=== PATIENT | male | born 1980 | race Caucasian/White ===

== ENCOUNTER 2024-01-14 10:37 | Inpatient (IN) | payer OTHER ==
[~2024-01-14] VITALS: Ht 180.3 cm; Wt 66.4 kg
[~2024-01-14 10:37] MED LIST: ALBU90OI INH; AZIT250 PO; HYDGUAL120 PO; IBUP200; LORA1 PO; NICO14TP TOP; PROM25 PO; SULTRIDS PO
[2024-01-14 11:20] LABS: Source, Urine Clean Catch
[2024-01-14 11:24] LABS: Appearance, Urine Clear (Clear); Bilirubin, Urine Neg (Neg); Blood, Urine Neg (Neg); Color, Urine Yellow (P-Yellow); Glucose Qualitative, Urine Neg (Neg); Ketones, Urine 3+ (Neg); Leukocyte Esterase, Urine Neg (Neg); Nitrite, Urine Neg (Neg); Protein, Urine 1+ (Neg); Specific Gravity, Urine 1.025 (1.003-1.022); Urobilinogen, Urine NORM (Normal)
[2024-01-14 11:26] LABS: BASOPHILS ABSOLUTE AUTO 0.07 K/mm3 (0.00-0.23); BASOPHILS PERCENT AUTO 1 % (0-2); EOSINOPHILS ABSOLUTE AUTO 0.01 K/mm3 (0.00-0.68); EOSINOPHILS PERCENT AUTO 0 % (0-6); Hematocrit 46.9 % (37.0-53.0); Hemoglobin 15.8 g/dL (13.5-17.5); IMMATURE GRAN ABSOLUTE AUTO 0.12 K/mm3 (0.00-0.10); IMMATURE GRAN PERCENT AUTO 1 % (0-1); LYMPHOCYTES ABSOLUTE AUTO 1.27 K/mm3 (0.84-5.20); LYMPHOCYTES PERCENT AUTO 9 % (21-46); MONOCYTES ABSOLUTE AUTO 0.35 K/mm3 (0.16-1.47); MONOCYTES PERCENT AUTO 2 % (4-13); Mean Corpuscular HGB Conc 33.7 g/dL (31.5-36.5); Mean Corpuscular Volume 95 fL (80-100); Mean Platelet Volume 9.6 fL (9.1-12.4); NEUTROPHILS ABSOLUTE AUTO 12.53 K/mm3 (1.96-9.15); NEUTROPHILS PERCENT AUTO 87 % (41-73); Platelet Count 201 K/mm3 (150-400); RDW Coefficient Variation 12.9 % (11.7-14.2); RDW Standard Deviation 44.9 fL (35.1-46.3); Red Blood Cell Count 4.94 M/mm3 (4.30-5.90); White Blood Cell Count 14.35 K/mm3 (4.00-11.30)
[2024-01-14] MEDS ORDERED: Thiamine HCl 100 MG in NS 50 ML IV ONE (11:50)
[2024-01-14] MEDS ORDERED: Folic Acid 1 MG in NS 50 ML IV ONE (11:50)
[2024-01-14 12:19] LABS: Glucose, Blood 87 mg/dL (70-99)
[2024-01-14 12:29] LABS: Albumin, Blood 4.3 g/dL (3.4-5.0); Albumin/Globulin Ratio 1.2 (0.8-1.8); Bilirubin, Total 0.4 mg/dL (0.1-1.0); Bun/Creatinine Ratio 20.6 (12.0-20.0); Calcium, Blood 8.3 mg/dL (8.5-10.1); Creatinine, Blood 0.97 mg/dL (0.60-1.20); Globulin, Blood 3.7 g/dL (2.2-4.0); Phosphorus, Blood 4.1 mg/dL (2.5-4.9)
[2024-01-14 12:48] LABS: U Amphetamine Screen Not Detected; U Barbituate Screen Not Detected; U Benzodiazapine Screen Not Detected; U Buprenorphine Screen Not Detected; U Cannabinoids Screen Not Detected; U Cocaine Screen Not Detected; U Methadone Screen Not Detected; U Methamphetamine Screen Not Detected; U Opiates Screen Not Detected; U Oxycodone Screen Not Detected; U Phencyclidine Screen Not Detected
[2024-01-14] MEDS ORDERED: Dextrose 5% 1,000 ML IV SCH (14:05)
[2024-01-14 14:35] LABS: Base Excess Venous -8.8 mmol/L; Bicarbonate Venous 18.5 mmol/L (24.0-30.0); PCO2 Venous 31.3 mmHg (38-42); pH Blood Venous 7.34 (7.34-7.37)
[2024-01-14] MEDS ORDERED: ChlordiazePOXIDE 25 MG Cap PO PRN ×3 (15:35→17:35)
[2024-01-14] MEDS ORDERED: Acetaminophen 325 MG TABLET PO PRN (15:40)
[2024-01-14] MEDS ORDERED: LORazepam 2 MG/ML 1ML Injection IV PRN ×3 (15:40)
[2024-01-14] MEDS ORDERED: Ondansetron HCl 2 MG / ML 2ML Vial IV PRN (15:40)
[2024-01-14] MEDS ORDERED: D5W-1/2NS 1,000 ML IV SCH (16:00)
[2024-01-14 16:38] VITALS: BP 138/71
[2024-01-14 19:24] VITALS: BP 120/72
[2024-01-15 04:09] VITALS: BP 135/89
[2024-01-15 04:38] LABS: BASOPHILS ABSOLUTE AUTO 0.04 K/mm3 (0.00-0.23); BASOPHILS PERCENT AUTO 1 % (0-2); EOSINOPHILS ABSOLUTE AUTO 0.18 K/mm3 (0.00-0.68); EOSINOPHILS PERCENT AUTO 2 % (0-6); Hematocrit 41.5 % (37.0-53.0); Hemoglobin 14.5 g/dL (13.5-17.5); IMMATURE GRAN ABSOLUTE AUTO 0.04 K/mm3 (0.00-0.10); IMMATURE GRAN PERCENT AUTO 1 % (0-1); LYMPHOCYTES ABSOLUTE AUTO 3.03 K/mm3 (0.84-5.20); LYMPHOCYTES PERCENT AUTO 35 % (21-46); MONOCYTES ABSOLUTE AUTO 0.72 K/mm3 (0.16-1.47); MONOCYTES PERCENT AUTO 8 % (4-13); Mean Corpuscular HGB 31.9 pg (26.0-34.0); Mean Corpuscular HGB Conc 34.9 g/dL (31.5-36.5); Mean Corpuscular Volume 91 fL (80-100); Mean Platelet Volume 9.7 fL (9.1-12.4); NEUTROPHILS ABSOLUTE AUTO 4.74 K/mm3 (1.96-9.15); NEUTROPHILS PERCENT AUTO 54 % (41-73); Platelet Count 203 K/mm3 (150-400); RDW Coefficient Variation 12.8 % (11.7-14.2); RDW Standard Deviation 42.8 fL (35.1-46.3); Red Blood Cell Count 4.55 M/mm3 (4.30-5.90); White Blood Cell Count 8.75 K/mm3 (4.00-11.30)
[2024-01-15 04:58] LABS: Albumin, Blood 3.6 g/dL (3.4-5.0); Albumin/Globulin Ratio 1.1 (0.8-1.8); Bilirubin, Total 0.6 mg/dL (0.1-1.0); Bun/Creatinine Ratio 19.3 (12.0-20.0); Calcium, Blood 8.3 mg/dL (8.5-10.1); Creatinine, Blood 0.88 mg/dL (0.60-1.20); Globulin, Blood 3.4 g/dL (2.2-4.0); Potassium, Blood 3.8 mmol/L (3.5-5.5)
--- NOTE | 2024-01-15 05:09 | NUR ---
SHIFT SUMMARY NOC PT A/O X 4. PLEASANT AND COOPERATIVE WITH CARE. VSS. PT HAD CIWA 6 DURING SHIFT ASSESSMENT AND 25 MG LIBRIUM GIVEN. ON Q4H BLOOD GLUCOSE CHECKS (CBG 115, 115, 107, 119). D5W 1/2 NS INFUSING @ 125 ML/HR. PT CURRENTLY RESTING WITH BED IN LOWEST POSITION, AND CALL LIGHT WITHIN REACH.
[2024-01-15 07:56] VITALS: BP 144/87
[2024-01-15] MEDS ORDERED: Nicotine 14 MG PATCH TOP SCH (09:00)
[2024-01-15] MEDS ORDERED: Enoxaparin 40 MG/0.4 ML SYR SC SCH (09:00)
[2024-01-15] MEDS ORDERED: Thiamine HCl 100 MG in NS 50 ML IV SCH (12:00)
[2024-01-15] MEDS ORDERED: Folic Acid 1 MG in NS 50 ML IV SCH (12:00)
[2024-01-15] MEDS ORDERED: Nicoderm Cq1 EAC1 TOP (12:15)
[2024-01-15] MEDS ORDERED: MULVITA PO (12:17)
--- NOTE | 2024-01-15 13:09 | NUR ---
PATIENT DISCHARGED TO HOME AT 1300. PATIENT A&OX4 AND PLEASANT. WENT OVER EDUCATION AND MEDICATIONS PRIOR TO DISCHARGE. ARRANGED TRANSPORT WITH [facility] FOR RIDE TO HOME. PATIENT LEFT WITH ALL PERSONAL BELONGINGS AND TRANSPORTED TO [facility] VIA WHEELCHAIR.
--- NOTE | 2024-01-15 13:47 | NUR ---
LATE NOTE FOR 01/14/24. PT HAD BEEN AOX4 AND COOPERATIVE OF CARE. PT HAD ARRIVED AND BEEN SETTLED INTO ROOM. PT HAD A CIWA OF 8 AND WAS TREATED PER EMAR. PT ABLE TO MAKE NEEDS KNOWN AND CALLED APPROPRIATELY.
--- NOTE | 2024-01-15 13:49 | NUR ---
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
== END 2024-01-15 13:09 | disposition home or self-care (01) | DRG 897 ==
LOC: ER 10:37 → MEDS 15:34
PROVIDERS: Emergency Medicine; ADMIT Family Medicine
DX: F10.229 Alcohol dependence with intoxication, unspecified (principal); E87.20 Acidosis, unspecified; E16.2 Hypoglycemia, unspecified; F17.210 Nicotine dependence, cigarettes, uncomplicated; Y90.6 Blood alcohol level of 120-199 mg/100 ml; Z71.41 Alcohol abuse counseling and surveillance of alcoholic; Z71.6 Tobacco abuse counseling
CPT/HCPCS: 36415; 70450; 80053; 80320; 82010; 82607; 82746; 82803; 82947; 83605; 83735; 84100; 85025; 96365; 96368; 99285-25; A9270; J3411; J7042; J7070